=== PATIENT | male | born 2000 | race Caucasian/White ===

== ENCOUNTER 2023-03-24 13:18 | Emergency (ER) | payer SELFPAY ==
[2023-03-24 13:24] VITALS: BP 136/74; PULSE 63; RESP 18; TEMP 37.1; O2SAT 98
--- NOTE | 2023-03-24 13:30 | DI.RAD_ITS ---
Exam(s) XR FOOT LT COMPLETE EXAM: XR FOOT LT COMPLETE CLINICAL HISTORY: Left foot pain. TECHNIQUE: 2D digital imaging was performed. Three views. COMPARISON: No exams were available for comparison FINDINGS: BONES: No acute fracture is present. No bony destructive lesion is seen. JOINTS: No dislocation present. SOFT TISSUE: Swelling. No foreign body. IMPRESSION: Tissue swelling. No bony abnormality identified DATA REPOSITORY: RADIATION DOSE DELIVERED:
--- NOTE | 2023-03-24 13:32 | ED.GENADUL_ITS ---
Discharge Plan Disposition Patient Disposition: Home Discharge Details Clinical Impression: Localized swelling of left foot Primary Care Provider: Zachery Curtis ED Provider: Drake Burt Home Meds and New Rx's Prescriptions: Continued multivitamin Tablet 1 tab PO DAILY Patient Comments: no longer taking 03/24/23 (DME) Aerochamber Mini Spacer 1 ea Miscellaneous PRN Qty: 1 0RF Patient Comments: no longer taking 03/24/23 Rx Instructions: As directed albuterol sulfate [ProAir HFA] 90 mcg/actuation HFA aerosol inhaler 2 puff Inhalation Q3H PRN Qty: 1 1RF Patient Comments: no longer taking 03/24/23 Discharge Instructions Additional Instructions: You are seen in the emergency department for your foot pain. Your x-ray showed no sign of any fracture and your ultrasound showed no sign of any blood clots. Please wear this hard soled shoe as needed for support. Please follow-up with your primary care provider later this week. As we discussed, if you develop worsening pain fevers or loose sensation in your foot please return to the emergency department. Discharge Data Discharge Date/Time-TO BE ENTERED AT DEPARTURE: 03/24/23 15:16 Medical Decision Making This is an overall well-appearing 22-year-old male normothermic and not tachycardic not hypertensive with left foot swelling and calf pain concern for possibility of a DVT for which patient will undergo left lower extremity duplex study. No pain out of proportion to suggest necrotizing soft tissue infection. Foot warm well perfused with 2+ PT and DP pulses so I am not concerned for critical limb ischemia so I do not feel that the patient requires a CT angiogram. No signs of abscess based on no fluctuance and no erythema to suggest cellulitis so will defer antibiotics. No significant trauma and negative plain film so well defer CT scan and make patient weightbearing as tolerated in a walking boot. Patient has no bilateral swelling nor any upper extremity swelling and is not hypertensive so my suspicion for proteinuria and nephrotic syndrome is exceedingly low so did not obtain a urinalysis. Furthermore patient has not recently had a urinary tract infection and does not have a elevated blood pressure though he does have an elevated BMI. If his left lower extremity duplex study is negative for DVT will have patient seen by his [facility] care provider later this week for follow-up. I have advised ED return for worsening swelling worsening pain and any fevers or redness. Will provide patient with a hard soled shoe. I have asked health community services manager Lizzie to have the patient seen in 2 days by his primary care provider. 3 PM Negative duplex study left lower extremity. Patient discharged with return indications and outpatient PMD follow-up. HPI General Date/Time Provider Initiated Documentation: 03/24/23 13:30 . HPI Narrative: This is a previously healthy 22-year-old male up-to-date with immunizations arriving via private vehicle in the setting of 3 days of pain to top of his left foot. He denies any specific injuries and trauma. He denies history of gout. He has had no recent URI symptoms. No significant redness. He does endorse some pain to his proximal left calf. This pain is worse when he walks. He has had no swelling in his hands nor in his right foot. He denies numbness or tingling. He works at a gas station. He denies routine tobacco, ethanol, and illicits. No prior history of similar symptoms. Related Data Home Medications Medication Instructions Recorded Confirmed albuterol sulfate 90 mcg/actuation 2 puff inhalation Q3H PRN ##1 07/07/18 01/13/23 aerosol inhaler (ProAir HFA) multivitamin 1 tab PO DAILY 09/06/19 01/13/23 inhalational spacing device ##1 10/09/19 01/13/23 (Aerochamber Mini) Previous Rx's Medication Instructions Recorded albuterol sulfate 90 mcg/actuation 2 puff inhalation Q3H PRN ##1 07/07/18 aerosol inhaler (ProAir HFA) inhalational spacing device ##1 10/09/19 (Aerochamber Mini) Allergies Allergy/AdvReac Type Severity Reaction Status Date / Time No Known Allergies Allergy Verified 03/24/23 13:27 General Stated Complaint: Orthopedic MOE: 4 PFSH All Active Problems (Updated 03/24/23 @ 15:01 by Drake Burt MD) Localized swelling of left foot (Acute) Well adult health check (Acute) Attention deficit hyperactivity disorder (ADHD) (Chronic 05/10/14) IEP in place Autism spectrum disorder (Acute 02/17/17) Evaluation 08/25 at [facility] IEP Mild intermittent asthma (Acute 02/07/16) Pediatric body mass index (BMI) of greater than or equal to 95th percentile for age (Acute 02/17/17) Medical History (Updated 03/24/23 @ 15:01 by Drake Burt MD) ADHD (attention deficit hyperactivity disorder) Asthma Depressive disorder (01/27/13) Ingrown toenail of left foot Oppositional defiant disorder 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) Serous otitis media Surgical History Adenoidectomy Circumcision Myringotomy w/ PE (pressure equalizing) tubes x 3 Family History Mother Diabetes grandparent Diabetes Essential hypertension Heart disease Other Asthma Cancer Mental disorder Pediatric hearing loss Social History Smoking/Tobacco Use Status: Never Second Hand Exposure: No Smoking risk assessment performed?: Yes Alcohol Intake: never Substance use type: does not use Household members: family current occupation: Working at [employer] Pets and animals: Yes (1 cat) Pets and animals: cat(s) Current gender identity: male Seatbelt use: always Helmet use: Yes Water heater temp set <120 deg: Yes Fire extinguisher in home: Yes Carbon monox detector in home: Yes Firearms in home: No Exam Narrative Exam Narrative: General: Well-appearing in no acute distress speaking in complete sentences. Head: Normocephalic, atraumatic. Eye: Extraocular eye movements intact. No conjunctival injection. No scleral icterus. Ear, nose, mouth, throat: Grossly normal inspection. Normal voice, handling secretions normally. Neck: Trachea midline. Cardiovascular: Well-perfused distal extremities. Respiratory: Nonlabored respiration. Gastrointestinal: Nondistended abdomen. Musculoskeletal: Left lower extremity with no obvious deformities or lacerations. Left foot warm well perfused with 2+ PT and DP pulses. Cap refill less than 2 seconds in the left toes. 5 out of 5 strength left foot dorsi and plantarflexion. Sensation intact in the dorsal webspace between the first and second toes. Patient does have some mild soft tissue swelling on the dorsal aspect of the left foot. No fluctuance. No pain out of proportion. No erythema. Patient also has some proximal medial calf tenderness on the left. No palpable cords. Negative Homans' sign. Skin: Normal for age and race, grossly normal temperature and turgor. No acute rash. Neurologic: Alert and appropriate, no apparent acute deficits. Psychiatric: Mood and manner are appropriate. Grooming and personal hygiene are appropriate. Course Vital Signs Vital signs: Vital Signs Temperature 37.1 C 03/24/23 13:24 Pulse 63 03/24/23 13:24 Respiratory Rate 18 03/24/23 13:24 Blood Pressure 136/74 03/24/23 13:24 Pulse Oximetry 98 03/24/23 13:24 Temperature 37.1 C 03/24/23 13:24 Pulse 63 03/24/23 13:24 Respiratory Rate 18 03/24/23 13:24 Blood Pressure 136/74 03/24/23 13:24 Blood Pressure Position Sitting 03/24/23 13:24 Pulse Oximetry 98 03/24/23 13:24 Oxygen Delivery Method Room Air 03/24/23 13:24 Oxygen Flow Rate 0 03/24/23 13:24 Pain Level 4 03/24/23 13:24
--- NOTE | 2023-03-24 14:15 | DI.US_ITS ---
Exam(s) US LOWER EXTREMITY VENOUS LT EXAM: US LOWER EXTREMITY VENOUS LT CLINICAL HISTORY: Left calf pain foot swelling. TECHNIQUE: Lower extremity venous ultrasound performed using grayscale, color-flow, and spectral Do ppler analysis. COMPARISON: No exams were available for comparison FINDINGS: The common femoral, femoral and popliteal veins demonstrate normal compressibility, augmentation, and color Doppler. The posterior tibial veins are patent. No saphenous vein thrombosis or other superfi cial venous thrombosis is seen. No hematoma or Plunkett's cyst is seen. IMPRESSION: Negative lower extremity ultrasound. No evidence of DVT. DATA REPOSITORY:
--- NOTE | 2023-03-24 14:36 | NUR.NOTE ---
Nursing Note: referral for followup with primary
== END 2023-03-24 15:16 | disposition home or self-care (01) ==
PROVIDERS: Emergency Provider Emergency Medicine; PCP Pediatrics
DX: R22.42 Localized swelling, mass and lump, left lower limb (principal); M79.672 Pain in left foot; M79.662 Pain in left lower leg; F84.0 Autistic disorder
CPT/HCPCS: 99284; 73630; 93971; 99283